=== PATIENT | male | born 1965 | race Caucasian/White ===

== ENCOUNTER 2021-11-27 16:56 | Emergency (ER) | payer OTHER, SELFPAY ==
--- NOTE | ~2021-11-27 | XR_ITS ---
EXAM: XR shoulder LT min 2V DATE: 11/27/2021 17:56 HISTORY: PAIN THROUGHOUT L SHOULDER RADIATES DOWN ARM X11 DAYS NO INJ . COMPARISON: None available. FINDINGS: Normal mineralization. No fracture or dislocation. No lytic or blastic lesion. Joint space s are maintained. No erosion or periosteal change. Soft tissues within normal limits. IMPRESSION: No acute osseous finding in the left shoulder. Reviewed, dictated and finalized at location K.
--- NOTE | ~2021-11-27 | XR_ITS ---
EXAMINATION: XR chest 2V Exam Date/Time: 11/27/2021 17:48 CDT HISTORY: LEFT SIDED CP RADIATES TO L ARM Comparison: None available. RESULT: Lines, tubes, and devices: None. Lungs and pleura: Clear. Cardiomediastinal silhouette: Unremarkable. Other: No acute osseous or upper abdominal finding. IMPRESSION: No acute cardiopulmonary process. Reviewed, dictated and finalized at location K.
--- NOTE | 2021-11-27 17:00 | ECG_ITS ---
Measurements Intervals [place] Rate: 84 P: 73 IA: 164 QRS: 48 QRSD: 73 T: 46 QT: 316 QTc: 374 Interpretive Statements SINUS RHYTHM EARLY PRECORDIAL R/S TRANSITION BASELINE WANDER- III BORDERLINE ECG Electronically Signed On 11-27-2021 22:42:29 CDT by Vinayak Shipley D.O.
[2021-11-27 17:07] VITALS: BP 112/73; PULSE 84; RESP 16; TEMP 36.8; O2SAT 98
--- NOTE | 2021-11-27 17:26 | ED.UPPEXIN ---
HPI - Extremity Injury (Upper) General Chief Complaint: Extremity Injury, Upper Stated Complaint: L ARM PAIN Time Seen by Provider: 11/27/21 17:25 History of Present Illness HPI narrative: Patient is a 56-year-old male presenting to the emergency department for evaluation of atraumatic left upper extremity pain. Patient reports pain that has been present over the past 2 weeks, without any recent known injury. Patient reports aching, soreness that travels from his left shoulder into his left arm. Patient denies arm swelling, bruising, numbness or tingling. She denies exacerbation of pain with movement. He reports mild soreness in the left side of his neck. He denies any chest pain, cough, shortness of breath. No weight loss. Patient does have a history of thyroidectomy but has been compliant with his thyroid medications. Patient was sent to an urgent care by his primary care physician's office as they could not see him in office today, and they ultimately sent the patient here for further evaluation and cardiac work-up Related Data Allergies Allergy/AdvReac Type Severity Reaction Status Date / Time Penicillins Allergy Verified 07/17/12 16:13 Review of Systems Review of Systems: CONSTITUTIONAL: Denies fever, chills, or sweats. ENT: Denies rhinorrhea, congestion, sore throat, or otalgia. CARDIOVASCULAR: Denies chest pain, palpitations, or edema. RESPIRATORY: Denies cough or dyspnea. GASTROINTESTINAL: Denies abdominal pain, nausea, vomiting, or diarrhea. GENITOURINARY: Denies dysuria or hematuria. SKIN: Denies rash or itching. MUSCULOSKELETAL: Denies back pain, reports left shoulder pain and arm soreness NEUROLOGIC: Denies headache, numbness, or weakness. [facility] Social History Social History (Updated 11/27/21 @ 17:46 by Sofia Mayer MD) Smoking status: Never smoker Alcohol intake: never Substance use: never Living arrangements: with family Gender identity (if verbalized by the patient): Male Exam Narrative: GENERAL: Awake, alert, conversant HEAD: Normocephalic, atraumatic. EYES: PERRLA and EOMI. ENT: Nares clear, no rhinorrhea or epistaxis. Mucous membranes moist. NECK: Supple. No cervical midline tenderness, step-offs or deformities. CHEST: No respiratory distress, breathing even and non labored HEART: Regular rate, sinus rhythm ABDOMEN:Non distended, non tender EXTREMITIES: Normal range of motion. No edema. Left upper extremity: Intact sensation overlying the deltoid. No deformity. No swelling. Full internal and external rotation without pain. Full abduction and adduction without limitation or pain. Radial pulse 2+. Intact sensation median, ulnar, radial nerve distribution. Full flexion-extension at the left elbow, left wrist without limitation or pain. Mild tenderness overlying the left trapezius. SKIN: Warm, dry, no rash. NEURO:No focal deficits. Alert and oriented x3 Course Vital Signs Vital signs: Vital Signs Temperature 36.8 C 11/27/21 17:07 Pulse Rate 84 11/27/21 17:07 Respiratory Rate 16 11/27/21 17:07 Blood Pressure 112/73 11/27/21 17:07 Pulse Oximetry 98 11/27/21 17:07 Oxygen Delivery Room Air 11/27/21 17:07 Temperature 36.8 C 11/27/21 17:07 Pulse Rate 84 11/27/21 17:07 Respiratory Rate 16 11/27/21 17:07 Blood Pressure 112/73 11/27/21 17:07 Pulse Oximetry 98 11/27/21 17:07 Oxygen Delivery Room Air 11/27/21 17:07 MDM - Extremity Injury (Upper) MDM Narrative Medical decision making narrative: Pt presenting for evaluation of atraumatic left shoulder pain that has been ongoing over the past 2 weeks. Differential includes anginal type pain although this seems less likely given no other concurrent chest pain, dyspnea. Considered cervicalgia but has no cervical midline tenderness, no strength deficits. No evidence of mediastinal lymphadenopathy, mass on chest x-ray which sometimes radiates to the shoulder. No edema or evidence of infec
[2021-11-27] MEDS: KETOROLAC (*BKC) 60 MG/2 ML VIAL 30 MG IM (17:55)
[2021-11-27 18:13] LABS: Basophils Absolute Auto 0.1 K/mm3 (0.0-0.1); Eosinophils Absolute Auto 0.2 K/mm3 (0-0.3); Eosinophils Percent Auto 2.9 % (0-4.4); Hematocrit 43.7 % (42.0-52.0); Hemoglobin 15.1 g/dL (14.0-18.0); Immature Granulocyte Absolute 0.01 K/mm3 (0.00-0.031); Immature Granulocyte Percent A 0.1 % (0-0.5); Lymphocytes Absolute Auto 2.35 K/mm3 (0.9-3.2); Lymphocytes Percent Auto 33.9 % (18.3-44.2); Mean Corpuscular HGB Conc 34.6 g/dl (32-36); Mean Corpuscular Hemoglobin 31.4 pg (26-34); Mean Corpuscular Volume 90.9 fl (80-100); Mean Platelet Volume 8.7 fl (7.4-10.4); Monocytes Absolute Auto 0.6 K/mm3 (0.1-0.6); Monocytes Percent Auto 9.2 % (2.6-8.5); Neutrophils Absolute Auto 3.7 K/mm3 (1.3-6.7); Neutrophils Percent Auto 52.9 % (45.5-73.1); Platelet Count Result 212 k/mm3 (150-375); Red Blood Count 4.81 M/mm3 (4.6-6.20); Red Cell Distribution Width 13.2 % (11.5-14.5); White Blood Count 6.9 K/mm3 (4.5-10.0)
[2021-11-27 18:22] LABS: Anion Gap 5 mmol/L (8-16); Blood Urea Nitrogen 25 mg/dL (9-20); Calcium 9.1 mg/dL (8.4-10.2); Carbon Dioxide 29 mmol/L (22-30); Chloride 104 mmol/L (98-107); Estimated Glomerular Filt Rate 57; Glucose 97 mg/dL (65-110); Potassium 4.1 mmol/L (3.4-5.0); Sodium 138 mmol/L (137-145)
[2021-11-27 18:40] LABS: Troponin I < 0.012 ng/mL (0.000-0.034)
== END 2021-11-27 19:24 | disposition home or self-care (01) ==
PROVIDERS: Emergency Provider Emergency Medicine
DX: M54.2 Cervicalgia (principal); M25.512 Pain in left shoulder
CPT/HCPCS: 36415; 71046; 73030; 80048; 84484; 85025; 93005; 96372; 99284; J1885

== ENCOUNTER → 2023-01-28 12:54 | Outpatient (CLI) | payer OTHER, SELFPAY ==
--- NOTE | ~2023-01-28 | CT_ITS ---
EXAMINATION: CT sinus wo con DATE: 01/28/2023 13:08 INDICATION: Chronic sinusitis TECHNIQUE: Computed tomography (CT) of the paranasal sinuses was performed without contrast. Iterativ e reconstruction technique was employed. Exam dose: 272.05 mGy-cm total exam DLP. COMPARISON: None FINDINGS: There is prominent leftward deviation of the nasal septum. There is prominent soft tissue swelling of the nasal turbinates. Intralamellar cell of right middle nasal turbinate. The ostiomeatal units are patent. There is normal development and aeration of the paranasal sinuses and mastoid air cells. IMPRESSION: Prominent leftward deviation of nasal septum Soft tissue swelling the nasal turbinates Intralamellar cell of right middle nasal turbinate Patent ostiomeatal units, paranasal sinuses and mastoid air cells Reviewed, dictated and finalized at Location A. Reviewed, dictated and finalized at location A.
== END ==
PROVIDERS: PCP Allergy & Immunology; Visit Provider Allergy & Immunology
DX: J32.9 Chronic sinusitis, unspecified (principal); J34.2 Deviated nasal septum
CPT/HCPCS: 70486

== ENCOUNTER 2023-07-23 16:12 | Emergency (ER) | payer OTHER, SELFPAY ==
--- NOTE | ~2023-07-23 | CT_ITS ---
EXAMINATION: CT brain wo con DATE: 07/23/2023 17:14 INDICATION: Head injury. TECHNIQUE: Computed tomography (CT) of the head was performed without intravenous contrast. The dose- length product was 605.33 mGy-cm. Automated exposure control and iterative reconstruction technique w ere employed. COMPARISON: None FINDINGS: No acute intracranial hemorrhage, infarction, mass or mass effect. No ventriculomegaly or m idline shift. Basilar cisterns are patent. Paranasal sinuses and mastoids are pneumatized. No depress ed skull fractures. Normal woods-white differentiation. IMPRESSION: 1. No acute intracranial abnormality. Reviewed, dictated and finalized at location A.
[2023-07-23 16:27] VITALS: BP 144/87; PULSE 84; RESP 16; TEMP 36.9; O2SAT 99
--- NOTE | 2023-07-23 17:58 | ED.GENADULT ---
HPI - General Adult General Chief complaint: Head Injury Stated complaint: HI- THURSDAY. FATIGUE Time Seen by Provider: 07/23/23 17:15 Source: patient Mode of arrival: ambulatory Limitations: no limitations History of Present Illness HPI narrative: This is a 58 year old male who presents to the ED with chief complaint of head injury that occurred 2 days ago. Reports that he has had some fatigue and is concerned for TBI. Patient states that he was trying to mouth a table on the wall of his garage. He had a 2 x 4 board underneath to prop it up when he accidentally kicked the 2 x 4. He states that table came down and hit him on the top of the head. Denies any LOC. Denies numbness, weakness, headache or vomiting. Related Data Home Medications Medication Instructions Recorded Confirmed cholecalciferol (vitamin D3) 50 50 mcg PO DAILY 02/09/23 02/09/23 mcg (2,000 unit) capsule fluticasone propionate 50 1 spray intranasal DAILY 02/09/23 02/09/23 mcg/actuation nasal spray,suspension (Flonase Allergy Relief) levothyroxine 112 mcg tablet mcg PO 02/09/23 02/09/23 levothyroxine 125 mcg tablet mcg PO 02/09/23 02/09/23 testosterone topical 02/09/23 02/09/23 Allergies Allergy/AdvReac Type Severity Reaction Status Date / Time Penicillins Allergy Mild Rash Verified 05/21/23 13:28 Review of Systems Review of Systems: All systems as dictated in HPI PMF Past Medical History Medical History Chronic sinusitis Hypothyroidism associated with surgical procedure Low testosterone Surgical History Surgical History H/O thyroidectomy 2020 History of nasal surgery 1975 Family History Family History Father Lung cancer Mother Diabetes mellitus Hypothyroidism Social History Social History Smoking status: Never smoker Alcohol intake: never Substance use: never Living arrangements: with family Gender identity (if verbalized by the patient): Male Exam Narrative: GENERAL: Well-appearing, well-nourished, and in no acute distress. HEAD: Normocephalic, atraumatic. EYES: PERRLA and EOMI. ENT: Nares clear, no rhinorrhea or epistaxis. Mucous membranes moist. Oropharynx without tonsillar hypertrophy exudate or other lesions. NECK: Supple. No adenopathy or masses. CHEST: No respiratory distress. Clear to auscultation. No wheezes rales or rhonchi HEART: Regular rate and rhythm. No murmur heard. Normal peripheral pulses. ABDOMEN: Soft, nontender, nondistended, normal active bowel sounds. MSK: Normal range of motion. No edema. SKIN: Warm, dry, no rash. NEURO: Alert and oriented x4. No focal deficits. PSYCH: Normal mood and affect. Course Vital Signs Vital signs: Vital Signs Temperature 98.5 F 07/23/23 16:27 Pulse Rate 84 07/23/23 16:27 Respiratory Rate 16 07/23/23 16:27 Blood Pressure 144/87 H 07/23/23 16:27 Pulse Oximetry 99 07/23/23 16:27 Temperature 98.1 F 07/23/23 18:07 Pulse Rate 67 07/23/23 18:07 Respiratory Rate 18 07/23/23 18:07 Blood Pressure 132/73 07/23/23 18:07 Pulse Oximetry 99 07/23/23 18:[address] [facility] Narrative Medical decision making narrative: This is a 58-year-old male who presents to the ED with chief complaint of head injury that occurred 2 days ago. Concern for TBI. Vitals are normal. Exam is unremarkable. Neurologic exam is intact fully CT brain shows no acute findings. Presentation consistent with concussion due to head trauma. Pt will be discharged in stable condition. Return precautions given and supportive measures discussed. Pt is understanding and agreeable with plan for discharge and follow-up with PCP. Vital Signs Vital Signs: Vital Signs Temperature 98.5 F 07/23/23 1
[2023-07-23 18:07] VITALS: BP 132/73; PULSE 67; RESP 18; TEMP 36.7; O2SAT 99
== END 2023-07-23 18:07 | disposition home or self-care (01) ==
PROVIDERS: Emergency Provider Physician Assistant; PCP Family Medicine
DX: S06.0X0A Concussion without loss of consciousness, initial encounter (principal); J32.9 Chronic sinusitis, unspecified; E89.0 Postprocedural hypothyroidism; W20.8XXA Other cause of strike by thrown, projected or falling object, initial encounter
CPT/HCPCS: 70450; 99284

== ENCOUNTER 2023-07-30 11:50 | Outpatient (CLI) | payer OTHER, SELFPAY ==
[2023-07-30 16:47] LABS: Basophils Absolute Auto 0.1 K/mm3 (0.0-0.1); Basophils Percent Auto 0.9 % (0.2-1.2); Eosinophils Absolute Auto 0.1 K/mm3 (0-0.3); Eosinophils Percent Auto 0.6 % (0-4.4); Hematocrit 43.5 % (42.0-52.0); Immature Granulocyte Absolute 0.01 K/mm3 (0.00-0.031); Immature Granulocyte Percent A 0.1 % (0-0.5); Lymphocytes Absolute Auto 1.66 K/mm3 (0.9-3.2); Lymphocytes Percent Auto 21.1 % (18.3-44.2); Mean Corpuscular HGB Conc 34.5 g/dl (32-36); Mean Corpuscular Hemoglobin 31.3 pg (26-34); Mean Corpuscular Volume 90.6 fl (80-100); Mean Platelet Volume 9.1 fl (7.4-10.4); Monocytes Absolute Auto 0.7 K/mm3 (0.1-0.6); Monocytes Percent Auto 8.8 % (2.6-8.5); Neutrophils Absolute Auto 5.4 K/mm3 (1.3-6.7); Neutrophils Percent Auto 68.5 % (45.5-73.1); Platelet Count Result 254 k/mm3 (150-375); Red Cell Distribution Width 12.5 % (11.5-14.5); White Blood Count 7.9 K/mm3 (4.5-10.0)
[2023-07-30 18:33] LABS: Alanine Aminotransferase 37 U/L (6-50); Albumin Level 4.2 g/dL (3.5-5.1); Alkaline Phosphatase 49 U/L (38-126); Anion Gap 7 mmol/L (8-16); Aspartate Amino Transferase 44 U/L (17-59); Bilirubin,Total 0.7 mg/dL (0.2-1.3); Blood Urea Nitrogen 22 mg/dL (9-20); Calcium 9.5 mg/dL (8.4-10.2); Carbon Dioxide 23 mmol/L (22-30); Chloride 107 mmol/L (98-107); Estimated Glomerular Filt Rate > 60; Glucose 99 mg/dL (65-110); Potassium 3.8 mmol/L (3.4-5.0); Sodium 137 mmol/L (137-145)
[2023-07-30 20:54] LABS: Prostate Specific Antigen 0.3 ng/mL (< OR = 4.0)
[2023-07-31 02:30] LABS: T4 Thyroxine 9.66 ug/dL (5.53-11.0)
[2023-08-02 06:03] LABS: Thyroglobulin 0.2 ng/mL (2.8-40.9); Thyroglobulin Antibodies <1 IU/mL (<=1)
== END 2023-07-30 11:51 | disposition home or self-care (01) ==
LOC: ANHGOSHLAB 11:51
PROVIDERS: PCP Family Medicine; Visit Provider Family Medicine
DX: E89.0 Postprocedural hypothyroidism (principal); R79.89 Other specified abnormal findings of blood chemistry; R73.03 Prediabetes; Z85.850 Personal history of malignant neoplasm of thyroid
CPT/HCPCS: 36415; 80053; 83036; 84153; 84432; 84436; 84443; 85025; 86800; G0103

== ENCOUNTER 2023-08-05 13:43 | Outpatient (CLI) | payer OTHER, SELFPAY ==
[2023-08-05 18:33] LABS: Hematocrit 42.3 % (42.0-52.0); Hemoglobin 14.3 g/dL (14.0-18.0); Mean Corpuscular HGB Conc 33.8 g/dl (32-36); Mean Corpuscular Hemoglobin 31.4 pg (26-34); Mean Corpuscular Volume 92.8 fl (80-100); Mean Platelet Volume 9.2 fl (7.4-10.4); Platelet Count Result 225 k/mm3 (150-375); Red Blood Count 4.56 M/mm3 (4.6-6.20); Red Cell Distribution Width 12.8 % (11.5-14.5); White Blood Count 9.6 K/mm3 (4.5-10.0)
[2023-08-05 19:01] LABS: Alanine Aminotransferase 31 U/L (6-50); Alkaline Phosphatase 49 U/L (38-126); Anion Gap 5 mmol/L (4-12); Aspartate Amino Transferase 37 U/L (17-59); Bilirubin,Total 0.6 mg/dL (0.2-1.3); Blood Urea Nitrogen 24 mg/dL (9-20); Calcium 8.9 mg/dL (8.4-10.2); Carbon Dioxide 30 mmol/L (22-30); Chloride 103 mmol/L (98-107); Estimated Glomerular Filt Rate 56; Glucose 160 mg/dL (65-110); Potassium 3.8 mmol/L (3.4-5.0); Sodium 138 mmol/L (137-145)
[2023-08-05 19:13] LABS: Free T4 Free Thyroxine 0.96 ng/mL (0.78-2.19)
[2023-08-05 19:25] LABS: Thyroid Stimulating Hormone 0.952 uIU/mL (0.465-4.680)
[2023-08-08 21:44] LABS: Testosterone Free 78.7 pg/mL (35.0-155.0); Testosterone Total 423 ng/dL (250-1100)
== END 2023-08-05 13:44 | disposition home or self-care (01) ==
LOC: ANHGOSHLAB 13:45
PROVIDERS: PCP Family Medicine; Visit Provider Family Medicine
DX: E89.0 Postprocedural hypothyroidism (principal); R73.03 Prediabetes; R79.89 Other specified abnormal findings of blood chemistry; Z85.850 Personal history of malignant neoplasm of thyroid
CPT/HCPCS: 36415; 80053; 83036; 84402; 84403; 84439; 84443; 85027

== ENCOUNTER 2023-08-20 13:32 | Outpatient (CLI) | payer OTHER, SELFPAY ==
[2023-08-20 20:04] LABS: Free T4 Free Thyroxine 1.25 ng/mL (0.78-2.19)
== END 2023-08-20 13:33 | disposition home or self-care (01) ==
PROVIDERS: PCP Family Medicine; Visit Provider Family Medicine
DX: E89.0 Postprocedural hypothyroidism (principal)
CPT/HCPCS: 36415; 84439; 84443

== ENCOUNTER 2024-02-01 11:19 | Outpatient (CLI) | payer OTHER, SELFPAY ==
[2024-02-01 14:47] LABS: Basophils Absolute Auto 0.1 K/mm3 (0.0-0.1); Eosinophils Absolute Auto 0.1 K/mm3 (0-0.3); Eosinophils Percent Auto 1.3 % (0-4.4); Hematocrit 45.9 % (42.0-52.0); Hemoglobin 15.8 g/dL (14.0-18.0); Immature Granulocyte Absolute 0.01 K/mm3 (0.00-0.031); Immature Granulocyte Percent A 0.1 % (0-0.5); Lymphocytes Absolute Auto 1.46 K/mm3 (0.9-3.2); Lymphocytes Percent Auto 21.5 % (18.3-44.2); Mean Corpuscular HGB Conc 34.4 g/dl (32-36); Mean Corpuscular Hemoglobin 31.7 pg (26-34); Mean Platelet Volume 9.5 fl (7.4-10.4); Monocytes Absolute Auto 0.6 K/mm3 (0.1-0.6); Monocytes Percent Auto 8.5 % (2.6-8.5); Neutrophils Absolute Auto 4.6 K/mm3 (1.3-6.7); Neutrophils Percent Auto 67.6 % (45.5-73.1); Platelet Count Result 221 k/mm3 (150-375); Red Blood Count 4.99 M/mm3 (4.6-6.20); Red Cell Distribution Width 13.2 % (11.5-14.5); White Blood Count 6.8 K/mm3 (4.5-10.0)
[2024-02-01 14:52] LABS: Chloride 102 mmol/L (98-107); Potassium 4.3 mmol/L (3.4-5.0); Sodium 138 mmol/L (137-145)
[2024-02-01 14:53] LABS: Alanine Aminotransferase 38 U/L (6-50); Albumin Level 4.3 g/dL (3.5-5.1); Alkaline Phosphatase 41 U/L (38-126); Anion Gap 8 mmol/L (4-12); Aspartate Amino Transferase 57 U/L (17-59); Bilirubin,Total 0.9 mg/dL (0.2-1.3); Blood Urea Nitrogen 25 mg/dL (9-20); Calcium 9.1 mg/dL (8.4-10.2); Carbon Dioxide 28 mmol/L (22-30); Estimated Glomerular Filt Rate 52; Glucose 90 mg/dL (65-110)
[2024-02-01 15:48] LABS: Hemoglobin A1C 5.8 % (<5.7)
[2024-02-01 16:38] LABS: T4 Thyroxine 7.06 ug/dL (5.53-11.0)
[2024-02-05 05:26] LABS: Testosterone Total 653 ng/dL (250-1100)
== END 2024-02-01 11:20 | disposition home or self-care (01) ==
LOC: ANHGOSHLAB 11:20
PROVIDERS: PCP Family Medicine; Visit Provider Family Medicine
DX: E89.0 Postprocedural hypothyroidism (principal); R73.03 Prediabetes; R79.89 Other specified abnormal findings of blood chemistry
CPT/HCPCS: 36415; 80053; 83036; 84403; 84436; 84443; 85025

== ENCOUNTER 2024-07-25 12:40 | Outpatient (CLI) | payer OTHER, SELFPAY ==
[2024-07-25 13:56] LABS: Basophils Absolute Auto 0.1 K/mm3 (0.0-0.1); Basophils Percent Auto 0.7 % (0.2-1.2); Eosinophils Absolute Auto 0.2 K/mm3 (0-0.3); Eosinophils Percent Auto 1.9 % (0-4.4); Hematocrit 49.1 % (42.0-52.0); Hemoglobin 17.1 g/dL (14.0-18.0); Immature Granulocyte Absolute 0.03 K/mm3 (0.00-0.031); Immature Granulocyte Percent A 0.3 % (0-0.5); Lymphocytes Absolute Auto 1.69 K/mm3 (0.9-3.2); Lymphocytes Percent Auto 17.8 % (18.3-44.2); Mean Corpuscular HGB Conc 34.8 g/dl (32-36); Mean Corpuscular Hemoglobin 31.7 pg (26-34); Mean Corpuscular Volume 91.1 fl (80-100); Mean Platelet Volume 9.3 fl (7.4-10.4); Monocytes Absolute Auto 0.6 K/mm3 (0.1-0.6); Monocytes Percent Auto 6.5 % (2.6-8.5); Neutrophils Absolute Auto 6.9 K/mm3 (1.3-6.7); Neutrophils Percent Auto 72.8 % (45.5-73.1); Platelet Count Result 212 k/mm3 (150-375); Red Blood Count 5.39 M/mm3 (4.6-6.20); Red Cell Distribution Width 12.9 % (11.5-14.5); White Blood Count 9.5 K/mm3 (4.5-10.0)
[2024-07-25 14:47] LABS: Alanine Aminotransferase 37 U/L (6-50); Albumin Level 4.7 g/dL (3.5-5.1); Alkaline Phosphatase 44 U/L (38-126); Anion Gap 13 mmol/L (4-12); Aspartate Amino Transferase 32 U/L (17-59); Bilirubin,Total 0.8 mg/dL (0.2-1.3); Blood Urea Nitrogen 24 mg/dL (9-20); Calcium 9.5 mg/dL (8.4-10.2); Carbon Dioxide 24 mmol/L (22-30); Chloride 102 mmol/L (98-107); Estimated Glomerular Filt Rate 52; Glucose 98 mg/dL (65-110); Potassium 4.5 mmol/L (3.4-5.0); Sodium 139 mmol/L (137-145)
--- OUTSIDE RECORDS SUMMARY | 2024-07-25 14:58 | XMS_ITS | Referral Summary ---
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 Sensorineural hearing loss (SNHL) of both ears [H90.3] (Primary Dx) from Last 3 Months Allergies Active Allergy Reactions Criticality Noted Date Comments Clarithromycin Rash Medium Penicillins Rash Medium Reaction: Rash, Medications testosterone 20.25 mg/1.25 gram (1.62 %) gel in metered-dose pumpIndications: Male Hypogonadism Apply 1 Application topically slot floor attendant before breakfast 0 Active Euthyrox 125 mcg tabletIndication s:hypothyroidism Take 1 tablet (125 mcg total) by mouth slot floor attendant before breakfast T, TH, SAT, SUN 0 Active cholecalciferol (VITAMIN D-3) 2000 unit capsule Take 1 capsule (2,000 Units total) by mouth daily 0 Active Additional Information Patient taking differently:2,000 Units oralDaily (early AM), Indications: Vitamin D Deficiency, Informant: Self, Reported on 05/12/2023 fluticasone propionate (FLONASE) 50 mcg/actuation nasal sprayIndications :Chronic Non-Allergic Rhinitis Administer 1 spray into each nostril nightly Active acetaminophen (TYLENOL) 500 mg tablet Take 1 tablet (500 mg total) by mouth every 6 (six) hours as needed for pain, headaches or fever Active pseudoephedrine (SUDAFED) 30 mg tabletIndication s:Nasal Congestion Take 1 tablet (30 mg total) by mouth every 4 (four) hours as needed for congestion Active levothyroxine (SYNTHROID) 112 mcg tabletIndication s:hypothyroidism Take 1 tablet (112 mcg total) by mouth slot floor attendant before breakfast [facility] 3 Active fexofenadine (DWAINE) 180 mg tabletIndication s:Seasonal Allergic Rhinitis Take 1 tablet (180 mg total) by mouth slot floor attendant before breakfast Active multivitamin tabletIndication s:Vitamin Deficiency Prevention Take 1 tablet by mouth slot floor attendant before breakfast Active oxyCODONE (ROXICODONE) 5 mg immediate release tabletIndication s:Pain Take 1 tablet (5 mg total) by mouth every 4 (four) hours as needed for pain 10 tablet 4 Active sodium chloride (OCEAN) 0.65 % nasal spray Administer 2 sprays into each nostril as needed (Nasal stents) 15 mL 6 4 Active Active Problems Problem Noted Date Diagnosed Date Deviated nasal septum 02/10/2023 Nasal turbinate hypertrophy 02/10/2023 Lateral epicondylitis of left elbow 05/13/2022 Assessment & Plan (06/24/2022 11:49 AM DUPLEX TRIMMER): Patient has minimal residual issues. He may find using the tennis elbow strap helpful when performing strenuous activities or operating machines that vibrate Assessment & Plan (05/13/2022 11:15 AM DUPLEX TRIMMER): Patient has developed lateral epicondylitis of the left elbow. A tennis elbow strap was issued to use when active to dampen tensions generated on the tendon. Physical therapy may also be helpful. 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 A heel lift was issued which may balance is better. He is currently over correcting with the number of inserts in his shoe as well as lift that was added to the sole of the boot. His discrepancy is small enough that he likely can get away with a heel lift alone. Would also encourage stretching exercises of the heel cord and prevent contractures Dysequilibrium 03/12/2022 Polyneuropathy 03/12/2022 Assessment & Plan (03/12/2022 8:54 AM CDT): He had gait and balance impairment likely secondary to polyneuropathy. There was no evidence of cerebellar ataxia or parkinsonism on his examination. He did have severe peripheral neuropathy. As such I recommended referral to neuromuscular and EMG/NCS. Neurological symptoms 02/27/2022 Rotator cuff tendinitis, left 12/10/2021 Assessment & Plan (06/24/2022 11:50 AM DUPLEX TRIMMER): Patient's shoulder is much improved following physical therapy and the injection. The patient should continue with ongoing exercises to help strength in the arm further. This may help prevent future injuries Assessment & Plan (05/13/2022 11:14 AM DUPLEX TRIMMER): Patient likely has chronic rotator cuff tendinitis with impingement. This commonly will produce difficulties laying on the affected side or sleeping comfortably. Patient did not respond well to cortisone. Would try physical therapy to see what type of response he gets with ultrasound and other modalities. Would like to reexamine in six weeks. If he is having persistent issues further workup the shoulder may be indicated. Assessment & Plan (05/06/2022 10:46 AM DUPLEX TRIMMER): Patient has recurrent cuff tendinitis. He got excellent results with the cortisone injection after reviewing the treatment options elected undergo a follow-up injection today. If he is not getting lasting relief further workup of the rotator cuff may be needed for developing tear Assessment & Plan (12/10/2021 9:08 AM CDT): Patient's history exam is consistent with rotator cuff tendinitis. He has minimal arthritis of the shoulder joint as well. After reviewing the treatment options patient elected undergo a cortisone injection today. He tolerated the procedure well. Will enroll in physical therapy as he does have some loss of range of motion this may help prevent a frozen shoulder. IGT (impaired glucose tolerance) 11/24/2020 Hx of total thyroidectomy 05/21/2020 History of papillary adenocarcinoma of thyroid 0 05/21/2020 Vitamin D deficiency 03/21/2020 Sensorineural hearing loss, bilateral 02/01/2020 Graves disease 12/15/2019 Overview (12/15/2019): Added automatically from request for surgery [id number] Hypotestosteronism 02/15/2017 Allergy desensitization therapy 02/15/2017 Sciatica 09/24/2013 Overview (08/14/2016): SCIATICA Skin tag 05/17/2013 Overview (08/13/2016): Acrochordon Seborrheic keratosis 05/17/2013 Overview (08/13/2016): Seborrheic keratosis Atopic rhinitis 05/17/2013 Overview (08/14/2016): ALLERGIC RHINITIS NOS Hyperthyroidism 07/15/2012 Overview (08/14/2016): Hyperthyroidism Resolved Problems Problem Noted Date Diagnosed Date Resolved Date Overweight (BMI 25.0-29.9) 02/15/2017 0 05/25/2022 Hypersensitivity finding 11/22/201512/2016 Overview (08/14/2016): Desensitization to allergy shot Chronic sinusitis 09/24/2013 02/14/2018 Overview (08/13/2016): CHRONIC SINUSITIS NOS Immunizations Immunization Administration Dates Next Due Influenza, Quadrivalent, Sandy l Culture-based MDCK, Preservative Free, Antibiotic Free, Intramuscular 05/03/2021 Influenza, Quadrivalent, Spl it, Preservative Free, Intramuscular 05/22/2020,05/24/2019,02/17/2017 Influenza, Trivalent, IM (MDV) 02/08/2015,2013,02/08/2013 Influenza, Unspecified 04/28/2022,05/03/2021 Moderna SARS-CoV-2 Monovalen t Vaccination (12+ YRS) 04/28/2022,05/03/2021 Pfizer SARS-CoV-2 Monovalent Vaccination (12+ Yrs) PURPLE 09/20/2020,08/07/2020 Td, adsorbed 05/13/1994 Tdap 05/24/2019,03/09/2008 ZOSTER Recombinant 05/23/2021,01/08/2021 Social History Tobacco Use Types Packs/Day Years Used Date Smoking Tobacco: Former Cigarettes Q uit: 1979 Smokeless Tobacco: Never Comments:2019 hx: quit long time ago, well over 15 yrs. Alcohol Use Standard Drinks/Week Comments Yes 0 (1 standard drink = 0.6 oz pur e alcohol) AUDIT-C Answer Date Recorded Q1: How often do you have a drink containing alc ohol? 2-3 times a week 06/03/2023 Q2: How many drinks containi ng alcohol do you have on a typical day when you are drinking? 1 or 2 06/03/2023 Q3: How often do you have si x or more drinks on one occasion? Monthly 06/03/2023 PHQ-2 Answer Date Recorded PHQ-2 Total Score (If total score is 3 or more points, staff should administer the PHQ-9) 0 05/26/2022 Personal Safety Answer Date Recorded Have you ever been in or are you currently in a harmful physical or emotional relationship or is someone making you feel afraid or unsafe? Denies 06/03/2023 Sex and Gender Information Value Date Recorded Sex Assigned at Not on file Legal Sex Male 11:46 PM DUPLEX TRIMMER Gender Identity Not on file Sexual Orientation Not on file Last Filed Vital Signs Vital Sign Reading Time Taken Comments Blood Pressure 176/96 06/03/2023 11:15 AM DUPLEX TRIMMER Pulse 75 06/03/2023 11:20 AM DUPLEX TRIMMER Temperature 36.8 C (98.2 F) 06/03/2023 10:05 AM DUPLEX TRIMMER Respiratory Rate 14 06/03/2023 11:20 AM DUPLEX TRIMMER Oxygen Saturation 100% 06/03/2023 11:20 AM DUPLEX TRIMMER Inhaled Oxygen Concentration - - Weight 78.2 kg (172 lb 6.4 oz) 06/03/2023 7:05 A M DUPLEX TRIMMER Height 179.1 cm (5' 10.5 ) 06/03/2023 7:05 AM CS T Body Mass Index 24.39 06/03/2023 7:05 AM DUPLEX TRIMMER Plan of Treatment Not on file Procedures Procedure Name Priority Date/Time Associated Diagnosis Comments PSA SCREEN Routine 06/21/2022 8:57 AM DUPLEX TRIMMER HEPATITIS C ANTIBODY Routine 02/13/2020 8:59 AM CDT Need for hepatitis C screening test COLONOSCOPY REPORT 09/19/2015 from Last 3 Months or Most Recently Relevant to Health Maintenance Results * PSA screen (06/21/2022 8:57 AM DUPLEX TRIMMER) PSA 0.2 0.0 - 4.0 ng/mL [facility] - Comment: Cady ECLIA methodology. According to the [employer], Serum PSA should decrease and remain at undetectable levels after radical prostatectomy. The AUA defines biochemical recurrence as an initial PSA value 0.2 ng/mL or greater followed by a subsequent confirmatory PSA value 0.2 ng/mL or greater. Values obtained with different assay methods or kits cannot be used interchangeably. Results cannot be interpreted as absolute evidence of the presence or absence of malignant disease. 06/21/2022 8:57 AM DUPLEX TRIMMER 06/21/2022 Narrative [facility] - 06/22/2022 4:08 PM DUPLEX TRIMMER Performed at: [address] [place] [id number] Police Worker: Saul Barrientos PhD, Phone: [phone] us Justin Manriquez MD LAB BLOOD ORDERABLES Fi nal Result [facility] - * Hepatitis C antibody (02/13/2020 8:59 AM CDT) Hep C Ab Nonreactive Nonreactive [facility] Comment: Interpretive Data Nonreactive: Antibodies to HCV not detected. Does NOT exclude the possibility of recent exposure to HCV. Equivocal: Equivocal for HCV antibodies. Supplemental molecular testing will be automatically performed to determine infection status in accordance with current CDC screening recommendations. Reactive: Positive for HCV antibodies. This may represent current or past HCV infection. Supplemental molecular testing will be automatically performed to determine current infection status in accordance with current CDC screening recommendations. Interpretive data was last revised on 2019. Blood specimen (specimen) 02/13/2020 8:59 AM CDT 02/13/2020 1:15 PM CDT Justin Manriquez MD LAB MICROBIOLOGY - GENE RAL ORDERABLES Final Result [facility] [address] Department [place] [address] * COLONOSCOPY REPORT (09/19/2015) Anatomical Region Laterality Modality Other Narrative 09/19/2015 Ordered by an unspecified provider. Historical Provider GI PROCEDURE ORDERABLES F inal Result from Last 3 Months or Most Recently Relevant to Health Maintenance Insurance [employer] [facility] [employer] [facility] H[facility]/PPO Address: 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
--- OUTSIDE RECORDS SUMMARY | 2024-07-25 14:58 | XMS_ITS | Clinical Summary ---
Author Organization [facility] Address [address] [place] [address] Care Team Providers Care Leasing Consultant Name Role Phone Ibrahima Wilson MD Primary Care Provider [phone] Allergies Active Allergy Reactions Criticality Noted Date Comments Clarithromycin Rash Medium Penicillins Rash Medium Reaction: Rash, Medications testosterone 20.25 mg/1.25 gram (1.62 %) gel in metered-dose pumpIndications: Male Hypogonadism Apply 1 Application topically agronomy specialist before breakfast 0 Active Euthyrox 125 mcg tabletIndication s:hypothyroidism Take 1 tablet (125 mcg total) by mouth agronomy specialist before breakfast T, TH, SAT, SUN 0 [...] 1 tablet (112 mcg total) by mouth agronomy specialist before breakfast MWF 3 Active fexofenadine (DWAINE) 180 mg tabletIndication s:Seasonal Allergic Rhinitis Take 1 tablet (180 mg total) by mouth agronomy specialist before breakfast Active multivitamin tabletIndication s:Vitamin Deficiency Prevention Take 1 tablet by mouth agronomy specialist before breakfast Active oxyCODONE (ROXICODONE) 5 mg [...] 05/13/2022 Assessment & Plan (06/24/2022 11:49 AM SHIP'S OFFICER): Patient has minimal residual issues. He may find using the tennis elbow strap helpful when performing strenuous activities or operating machines that vibrate Assessment & Plan (05/13/2022 11:15 AM SHIP'S OFFICER): Patient has developed lateral epicondylitis of the left elbow. A tennis elbow strap was issued to use when active to dampen tensions generated on the tendon. Physical therapy may also be helpful. 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 The patient should continue with ongoing exercises to help strength in the arm further. This may help prevent future injuries Assessment & Plan (05/13/2022 11:14 AM SHIP'S OFFICER): Patient likely has chronic rotator cuff tendinitis [...] indicated. Assessment & Plan (05/06/2022 10:46 AM SHIP'S OFFICER): Patient has recurrent cuff tendinitis. He got [...] (12/15/2019): Added automatically from request for surgery [id number] Hypotestosteronism 02/15/2017 Allergy desensitization therapy 02/15/2017 Sciatica [...] 09/24/2013 02/14/2018 Overview (08/13/2016): CHRONIC SINUSITIS NOS Encounters Date Type Department Care Team Description 05/23/2024 11:00 AM SHIP'S OFFICER Procedure visit [facility] Otolaryngology [address] [place] [address] Medical Office Building [address] [place] [address] Coby Angeles Au.D. Sensorineural hearing loss (SNHL) of both ears [H90.3] (Primary Dx) from Last 3 Months Immunizations Immunization Administration Dates Next Due Influenza, Quadrivalent, Sandy l Culture-based MDCK, Preservative Free, Antibiotic Free, Intramuscular 05/03/2021 Influenza, Quadrivalent, Spl it, Preservative Free, Intramuscular 05/22/2020,05/24/2019,02/17/2017 Influenza, Trivalent, IM (MDV) 02/08/2015,2013,02/08/2013 Influenza, Unspecified 04/28/2022,05/03/2021 Moderna SARS-CoV-2 Monovalen t Vaccination (12+ YRS) 04/28/2022,05/03/2021 Pfizer SARS-CoV-2 Monovalent Vaccination (12+ Yrs) PURPLE 09/20/2020,08/07/2020 Td, adsorbed 05/13/1994 Tdap 05/24/2019,03/09/2008 ZOSTER Recombinant 05/23/2021,01/08/2021 Surgical History Surgery Date Site/Laterality Comments THYROIDECTOMY 05/11/2019 - 05/10/2020 NOSE SURGERY 05/11/1974 - 05/10/1975 Medical History Medical History Date Comments History of multiple allergies Se asonal allergies Hyperthyroidism Graves disease Dizziness Overweight (BMI 25.0-29.9) 02/15/2017 Family History Medical History Relation Name Comments Lung cancer Father Cancer -lung; C ause of : Cancer -lung Schizophrenia Father Other Mother Alive and well; Thyroid disease Mother dyslexia Other Anesthesia problems Neg Hx Relation Name Status Comments Father (Age 48) Mother Alive Other Social History Tobacco Use Types Packs/Day Years [...] on file Legal Sex Male 11:46 PM SHIP'S OFFICER Gender Identity Not on file Sexual Orientation Not on file Obstetrics History Last Filed Vital Signs Vital Sign Reading Time Taken Comments Blood Pressure 176/96 06/03/2023 11:15 AM SHIP'S OFFICER Pulse 75 06/03/2023 11:20 AM SHIP'S OFFICER Temperature 36.8 C (98.2 F) 06/03/2023 10:05 AM SHIP'S OFFICER Respiratory Rate 14 06/03/2023 11:20 AM SHIP'S OFFICER Oxygen Saturation 100% 06/03/2023 11:20 AM SHIP'S OFFICER Inhaled Oxygen Concentration - - Weight 78.2 kg (172 lb 6.4 oz) 06/03/2023 7:05 A M SHIP'S OFFICER Height 179.1 cm (5' 10.5 ) 06/03/2023 7:05 AM CS T Body Mass Index 24.39 06/03/2023 7:05 AM SHIP'S OFFICER Plan of Treatment Health Maintenance Due Date Last Done Comments Hepatitis B Screening 1983 Depression Screening 05/26/2023 05/26/2022, 03/03/2022, 02/27/2022, Additional history exists Regular Well Visit/Exam 18-64 05/26/2023 05/26/2022, 05/23/2021, 05/22/2020, Additional history exists Covid-19 Vaccine ( season) 2024 04/28/2022, 04/28/2022, 05/03/2021, Additional history exists Influenza Vaccine (#1) 2024 , 05/03/2021, 05/03/2021, Additional history exists Prostate Cancer Screening-PSA 06/21/2024 06/21/2022, 06/28/2021, 05/31/2020, Additional history exists Colon Cancer Screening-Colonoscopy 09/18/2025 09/19/2015 DTaP/Tdap/Td Vaccine (3 - Td or Tdap) 05/24/2029 05/24/2019, 03/09/2008, 05/13/1994 Colon Cancer Screening-CT Colonography Discontinued 09/19/2015 Colon Cancer Screening-DNA Stool Discontinued 09/19/2015 Colon Cancer Screening-FIT Discontinued 09/19/2015 Colon Cancer Screening-Sigmoidoscopy Discontinued 09/19/2015 Hepatitis C Screening Completed 02/13/2020 Zoster Vaccine Completed 05/23/2021, 01/08/2021 Pneumococcal vaccine <65 Aged Out No longer eligible based on patient's age to complete this topic Procedures Procedure Name Priority Date/Time Associated Diagnosis Comments PSA SCREEN Routine 06/21/2022 8:57 AM SHIP'S OFFICER HEPATITIS C ANTIBODY Routine 02/13/2020 8:59 AM CDT Need for hepatitis C screening test COLONOSCOPY REPORT 09/19/2015 from Last 3 Months or Most Recently Relevant to Health Maintenance Results * PSA screen (06/21/2022 8:57 AM SHIP'S OFFICER) PSA 0.2 0.0 - 4.0 ng/mL [facility] - 01 Comment: Cady ECLIA methodology. According to the [employer], Serum PSA should decrease and [...] absence of malignant disease. 06/21/2022 8:57 AM SHIP'S OFFICER 06/21/2022 [facility] - 06/22/2022 4:08 PM SHIP'S OFFICER Performed at: [address] [place] [id number] [employer]: Saul Barrientos PhD, Phone: [phone] Justin Manriquez MD LAB BLOOD ORDERABLES nal Result [facility] - 01 * Hepatitis C antibody (02/13/2020 8:59 AM [...] MICROBIOLOGY - GENE RAL ORDERABLES Final Result Performing Organization Address City/State/[facility] [place] Phone Number [facility] [phone] [place] [address] * COLONOSCOPY REPORT (09/19/2015) Anatomical Region Laterality Modality Other Narrative 09/19/2015 Ordered by an unspecified provider. us Historical Provider GI PROCEDURE ORDERABLES F inal Result from Last 3 Months or Most Recently Relevant to Health Maintenance Insurance [employer]YEES [employer] Advance Directives For more information, please contact: [phone] * Full Code (Latest Code Status on File) Date Activated Date Inactivated Comments 02/27/2022 9:09 PM 02/28/2022 10:20 PM * Full Code Date Activated Date Inactivated Comments 12/19/2019 3:25 PM 12/20/2019 1:45 PM Care Teams Leasing Consultant Relationship Specialty Start Date End Date Ibrahima Wilson MD [address] [place] [address] DR AKERS [address] [place] [id number] PCP - General Family Medicine 02/10/23
[2024-07-25 15:04] LABS: T4 Thyroxine 8.88 ug/dL (5.53-11.0)
[2024-07-25 15:46] LABS: Prostate Specific Antigen 0.3 ng/mL (< OR = 4.0)
[2024-07-25 18:53] LABS: Hemoglobin A1C 5.6 % (<5.7)
== END 2024-07-25 12:41 | disposition home or self-care (01) ==
LOC: ANHGOSHLAB 12:41
PROVIDERS: PCP Family Medicine; Visit Provider Family Medicine
DX: R73.03 Prediabetes (principal); E89.0 Postprocedural hypothyroidism; R79.89 Other specified abnormal findings of blood chemistry; N18.30 Chronic kidney disease, stage 3 unspecified; Z85.850 Personal history of malignant neoplasm of thyroid; Z12.5 Encounter for screening for malignant neoplasm of prostate
CPT/HCPCS: 36415; 80053; 83036; 84153; 84403; 84436; 84443; 85025; 86800; G0103

== ENCOUNTER 2025-03-22 13:34 | Outpatient (CLI) | payer OTHER, SELFPAY ==
--- OUTSIDE RECORDS SUMMARY | 2025-03-22 14:38 | XMS_ITS | Clinical Summary ---
Author Organization [facility] Address [address] [place] [id number] Care Team Providers Care Engine Tester Name Role Phone Ibrahima Wilson MD Primary Care Provider [phone] Allergies Active Allergy Reactions Criticality Noted Date Comments Clarithromycin Rash Medium Penicillins Rash Medium Reaction: Rash, Medications testosterone 20.25 mg/1.25 gram (1.62 %) gel in metered-dose pumpIndications: Male Hypogonadism Apply 1 Application topically auto slip cover installer before breakfast 0 Active Euthyrox 125 mcg tabletIndication s:hypothyroidism Take 1 tablet (125 mcg total) by mouth auto slip cover installer before breakfast T, TH, SAT, SUN 0 [...] 1 tablet (112 mcg total) by mouth auto slip cover installer before breakfast MWF 3 Active fexofenadine (DWAINE) 180 mg tabletIndication s:Seasonal Allergic Rhinitis Take 1 tablet (180 mg total) by mouth auto slip cover installer before breakfast Active multivitamin tabletIndication s:Vitamin Deficiency Prevention Take 1 tablet by mouth auto slip cover installer before breakfast Active oxyCODONE (ROXICODONE) 5 mg [...] 05/13/2022 Assessment & Plan (06/24/2022 11:49 AM CAN TOP SETTER): Patient has minimal residual issues. He may find using the tennis elbow strap helpful when performing strenuous activities or operating machines that vibrate Assessment & Plan (05/13/2022 11:15 AM CAN TOP SETTER): Patient has developed lateral epicondylitis of the left elbow. A tennis elbow strap was issued to use when active to dampen tensions generated on the tendon. Physical therapy may also be helpful. 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 The patient should continue with ongoing exercises to help strength in the arm further. This may help prevent future injuries Assessment & Plan (05/13/2022 11:14 AM CAN TOP SETTER): Patient likely has chronic rotator cuff tendinitis [...] indicated. Assessment & Plan (05/06/2022 10:46 AM CAN TOP SETTER): Patient has recurrent cuff tendinitis. He got [...] (12/15/2019): Added automatically from request for surgery [id number] Hypotestosteronism 02/15/2017 Allergy desensitization therapy 02/15/2017 Sciatica [...] on file Legal Sex Male 11:46 PM CAN TOP SETTER Gender Identity Not on file Sexual Orientation Not on file Last Filed Vital Signs Vital Sign Reading Time Taken Comments Blood Pressure 176/96 06/03/2023 11:15 AM CAN TOP SETTER Pulse 75 06/03/2023 11:20 AM CAN TOP SETTER Temperature 36.8 C (98.2 F) 06/03/2023 10:05 AM CAN TOP SETTER Respiratory Rate 14 06/03/2023 11:20 AM CAN TOP SETTER Oxygen Saturation 100% 06/03/2023 11:20 AM CAN TOP SETTER Inhaled Oxygen Concentration - - Weight 78.2 kg (172 lb 6.4 oz) 06/03/2023 7:05 A M CAN TOP SETTER Height 179.1 cm (5' 10.5) 06/03/2023 7:05 AM CS T Body Mass Index 24.39 06/03/2023 7:05 AM CAN TOP SETTER Plan of Treatment Health Maintenance Due Date Last Done Comments Hepatitis B Screening 1983 Depression Screening 05/26/2023 05/26/2022, 03/03/2022, 02/27/2022, Additional history exists Regular Well Visit/Exam 18-64 05/26/2023 05/26/2022, 05/23/2021, 05/22/2020, Additional history exists Prostate Cancer Screening-PSA 06/21/2024 06/21/2022, 06/28/2021, 05/31/2020, Additional history exists Covid-19 Vaccine ( season) 2025 04/28/2022, 04/28/2022, 05/03/2021, Additional history exists Influenza Vaccine (#1) 2025 2, 05/03/2021, 05/03/2021, Additional history exists Colon Cancer Screening-Colonoscopy 09/18/2025 [...] Comments PSA SCREEN Routine 06/21/2022 8:57 AM CAN TOP SETTER HEPATITIS C ANTIBODY Routine 02/13/2020 8:59 AM CDT Need for hepatitis C screening test COLONOSCOPY REPORT 09/19/2015 from Last 3 Months or Most Recently Relevant to Health Maintenance Results * PSA screen (06/21/2022 8:57 AM CAN TOP SETTER) PSA 0.2 0.0 - 4.0 ng/mL [facility] - 01 Comment: Cady ECLIA methodology. According to the [place] [employer], Serum PSA should decrease and [...] absence of malignant disease. 06/21/2022 8:57 AM CAN TOP SETTER 06/21/2022 Narrative [facility] - 06/22/2022 4:08 PM CAN TOP SETTER Performed at: [address] [place] [id number] Continuous Miner: Saul Barrientos PhD, Phone: [phone] Justin Manriquez MD LAB BLOOD ORDERABLES Fi nal Result Performing Organization Address City/[facility] Co de Phone Number [facility] - * Hepatitis C antibody (02/13/2020 [...] 8:59 AM CDT 02/13/2020 1:15 PM CDT us Justin Manriquez MD LAB MICROBIOLOGY - GENE R[place] [address] Department [place] [address] * COLONOSCOPY REPORT (09/19/2015) Anatomical Region Laterality Modality Other Narrative 09/19/2015 Ordered by an unspecified provider. us Historical Provider GI PROCEDURE ORDERABLES F inal Result from Last 3 Months or Most Recently Relevant to Health Maintenance Insurance [facility] [facility] [employer] [facility] [employer] Advance Directives For more information, please contact: [phone] * Full Code (Latest Code Status on File) Date Activated Date Inactivated Comments 02/27/2022 9:09 PM 02/28/2022 10:20 PM * Full Code Date Activated Date Inactivated Comments 12/19/2019 3:25 PM 12/20/2019 1:45 PM Care Teams Engine Tester Relationship Specialty Start Date End Date Ibrahima Wilson MD [facility] [facility] [place] [address] PCP - General Family Medicine 02/10/23
[2025-03-22 16:36] LABS: Free T4 Free Thyroxine 0.99 ng/dL (0.78-2.19)
[2025-03-22 16:49] LABS: Thyroid Stimulating Hormone 3.120 uIU/mL (0.465-4.680)
== END 2025-03-22 13:35 | disposition home or self-care (01) ==
LOC: ANHGOSHLAB 13:35
PROVIDERS: PCP Family Medicine; Visit Provider Nurse Practitioner Family
DX: E89.0 Postprocedural hypothyroidism (principal)
CPT/HCPCS: 36415; 84439; 84443